=== PATIENT | male | born 1950 | race Caucasian/White ===

== ENCOUNTER → 2019-09-12 10:01 | Outpatient (BNVA) | payer MEDICARE, SELFPAY | PROVIDERS: Visit Provider Nurse Practitioner Family | DX: I10 Essential (primary) hypertension (principal); H91.90 Unspecified hearing loss, unspecified ear; E78.00 Pure hypercholesterolemia, unspecified; I71.4 Abdominal aortic aneurysm, without rupture | CPT/HCPCS: 80053; 80061; 84443; 85025 ==

== ENCOUNTER → 2020-02-12 11:16 | Outpatient (BNVA) | payer MEDICARE, SELFPAY | PROVIDERS: Referring Provider Dermatology; Visit Provider Dermatology | DX: D48.9 Neoplasm of uncertain behavior, unspecified (principal); L73.8 Other specified follicular disorders | CPT/HCPCS: 99203 ==

== ENCOUNTER → 2020-02-27 15:10 | Outpatient (BNVA) | payer MEDICARE, SELFPAY | PROVIDERS: Visit Provider Dermatology | DX: D48.5 Neoplasm of uncertain behavior of skin (principal); D48.9 Neoplasm of uncertain behavior, unspecified | CPT/HCPCS: 11443; 12051; 88304; 88305 ==

== ENCOUNTER → 2020-03-12 08:48 | Outpatient (BNVA) | payer MEDICARE, SELFPAY | PROVIDERS: Visit Provider Dermatology | DX: Z48.02 Encounter for removal of sutures (principal) | CPT/HCPCS: 99212 ==

== ENCOUNTER 2020-04-04 08:05 | Outpatient (CLI) | payer MEDICARE, SELFPAY ==
--- NOTE | 2020-04-04 08:13 | CT_ITS ---
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 CT angiogram is performed during IV injection. Reformation images reviewed. All CT scans at [facility] use at least one of these dose optimization te chniques: automated exposure control; mA and/or kV adjustment per patient size (includes targeted exa ms where dose is matched to clinical indication); or iterative reconstruction. CONTRAST: Visipaque 320; 95 mL IV. DLP: 2766.43 mGycm COMPARISON: 06/05/2019 6.9 mm noncalcified nodule at the RIGHT lung base, image 22 of series 2. Stable since 05/08/2019. Chr onic emphysema. Cardiac chambers are not significantly enlarged. Small hiatal hernia. Abdominal aorta: Patient is status post endovascular graft repair of the abdominal aorta with extensi on into the iliac arteries bilaterally. The [place] aneurysm measures 8.9 x 9.6 cm. Measuring slightly smaller in size as compared to the prior study. There is a bulge of the posterior RIGHT lateral wall of the aorta which is similar to the prior study. No endovascular leak or para-aortic hematoma. Lume n of the graft is patent with good enhancement. There is good enhancement of the common iliac stent. Calcification in the external iliac arteries with no occlusions. Celiac axis and SMA are both patent. Mild but stable atrophy of the LEFT kidney with decreased perfusion. Cortical perfusion is slightly improved since 06/05/2019 examination there is mild atrophy of the LEFT kidney. Kidney is decreased i n size from 9.60 9.2 cm. Stable 2.2 cm cyst RIGHT kidney. LEFT accessory renal artery is still enhanc ing. Main renal artery is also normally enhancing. Liver, gallbladder, spleen, pancreas and adrenal glands are unchanged. No acute interval change. Prox imal small bowel is draped very closely associated with the aortic aneurysm. No GI tract obstruction. The appendix is normal. Sigmoid and descending colon diverticulosis without acute diverticulitis. Pr ostate gland is enlarged encroaching into the posterior bladder. Bilateral inguinal canals are patent , LEFT greater than RIGHT containing fat. Fat-containing umbilical hernia. No osteoblastic or osteolytic bone disease. CT/CT angio abdomen pelvis [id number] IMPRESSION: 1. Stable aorta iliac endograft placement since 06/05/2019. Slight contraction of the [place] aneurysm. Lumen of the endovascular graft is intact with no endo vascular leak identified. 2. Mild progressive atrophy of the LEFT kidney. Otherwise the cortex is better enhanced than on the prior study of 06/05/2019. 3. Stable noncalcified 6.9 mm nodule at the RIGHT lung base since 05/08/2019. Recommend [address] follow-up.
[2020-04-04 08:40] LABS: Blood Urea Nitrogen 22 mg/dL (8-23)
[2020-04-04] MEDS: iodixanol 320 mg/mL 100mL Btl IV (08:52)
== END 2020-04-04 08:06 | disposition home or self-care (01) ==
LOC: RADWPI 08:09
PROVIDERS: Radiology Diagnostic Radiology; Family Provider Nurse Practitioner Family; PCP Nurse Practitioner Family; Visit Provider Surgery
DX: I71.4 Abdominal aortic aneurysm, without rupture (principal); R91.1 Solitary pulmonary nodule
CPT/HCPCS: 74174; 82565; 84520; Q9967

== ENCOUNTER → 2020-04-29 16:34 | Outpatient (BNVA) | payer MEDICARE, SELFPAY | PROVIDERS: Family Provider Nurse Practitioner Family; PCP Nurse Practitioner Family; Visit Provider Nurse Practitioner Family | DX: I10 Essential (primary) hypertension (principal); E55.9 Vitamin D deficiency, unspecified; G47.00 Insomnia, unspecified | CPT/HCPCS: 80053; 80061; 82306; 82607; 84443; 85025 ==

== ENCOUNTER → 2020-05-31 09:39 | Outpatient (BNVA) | payer MEDICARE, SELFPAY | PROVIDERS: Family Provider Nurse Practitioner Family; PCP Nurse Practitioner Family; Visit Provider Internal Medicine Nephrology | DX: N18.30 Chronic kidney disease, stage 3 unspecified (principal) | CPT/HCPCS: 80069; 82043; 82310; 83970; 85025 ==

== ENCOUNTER → 2020-10-21 16:13 | Outpatient (BNVA) | payer MEDICARE, SELFPAY | PROVIDERS: Family Provider Nurse Practitioner Family; PCP Nurse Practitioner Family; Visit Provider Nurse Practitioner Family | DX: E55.9 Vitamin D deficiency, unspecified (principal); I10 Essential (primary) hypertension; I71.4 Abdominal aortic aneurysm, without rupture; G47.00 Insomnia, unspecified | CPT/HCPCS: 80053; 80061; 82306; 82607; 84443; 85025 ==

== ENCOUNTER → 2020-11-27 08:39 | Outpatient (BNVA) | payer MEDICARE, SELFPAY | PROVIDERS: Family Provider Nurse Practitioner Family; PCP Nurse Practitioner Family; Visit Provider Internal Medicine Nephrology | DX: I10 Essential (primary) hypertension (principal); I70.1 Atherosclerosis of renal artery; N18.30 Chronic kidney disease, stage 3 unspecified | CPT/HCPCS: 80069; 82043; 82310; 83970; 85025 ==

== ENCOUNTER → 2021-01-23 09:40 | Outpatient (BNVA) | payer MEDICARE, SELFPAY | PROVIDERS: Family Provider Nurse Practitioner Family; PCP Nurse Practitioner Family; Visit Provider Internal Medicine Nephrology | DX: I70.1 Atherosclerosis of renal artery (principal); N18.30 Chronic kidney disease, stage 3 unspecified; E55.9 Vitamin D deficiency, unspecified; I10 Essential (primary) hypertension; E78.00 Pure hypercholesterolemia, unspecified | CPT/HCPCS: 80048; 80069; 82043; 82306; 82310; 83970; 85007; 85027 ==

== ENCOUNTER → 2021-04-23 13:33 | Outpatient (BNVA) | payer MEDICARE, SELFPAY | PROVIDERS: Family Provider Nurse Practitioner Family; PCP Nurse Practitioner Family; Visit Provider Nurse Practitioner Family | DX: R30.0 Dysuria (principal); I10 Essential (primary) hypertension; E55.9 Vitamin D deficiency, unspecified; E78.00 Pure hypercholesterolemia, unspecified; G47.00 Insomnia, unspecified; N30.90 Cystitis, unspecified without hematuria | CPT/HCPCS: 80053; 80061; 81003; 82306; 85025 ==

== ENCOUNTER → 2021-08-22 10:07 | Outpatient (BNVA) | payer MEDICARE, SELFPAY | PROVIDERS: Family Provider Nurse Practitioner Family; PCP Nurse Practitioner Family; Visit Provider Nurse Practitioner Family | DX: G47.00 Insomnia, unspecified (principal); I10 Essential (primary) hypertension; R53.83 Other fatigue; Z12.5 Encounter for screening for malignant neoplasm of prostate; E78.00 Pure hypercholesterolemia, unspecified; R63.5 Abnormal weight gain | CPT/HCPCS: 80053; 80061; 84403; 84443; 85025; G0103 ==

== ENCOUNTER → 2021-11-17 08:55 | Outpatient (BNVA) | payer MEDICARE, SELFPAY | PROVIDERS: Family Provider Nurse Practitioner Family; PCP Nurse Practitioner Family; Visit Provider Registered Nurse | DX: I10 Essential (primary) hypertension (principal) | CPT/HCPCS: 80048 ==

== ENCOUNTER → 2022-01-13 13:32 | Outpatient (BNVA) | payer MEDICARE, SELFPAY | PROVIDERS: Family Provider Nurse Practitioner Family; PCP Nurse Practitioner Family; Visit Provider Internal Medicine Cardiovascular Disease | DX: I71.4 Abdominal aortic aneurysm, without rupture (principal); E78.00 Pure hypercholesterolemia, unspecified; Z86.73 Personal history of transient ischemic attack (TIA), and cerebral infarction without residual deficits; I70.1 Atherosclerosis of renal artery; I10 Essential (primary) hypertension; Z87.891 Personal history of nicotine dependence | CPT/HCPCS: 99213 ==

== ENCOUNTER → 2022-03-20 09:49 | Outpatient (BNVA) | payer MEDICARE, SELFPAY | PROVIDERS: Family Provider Nurse Practitioner Family; PCP Nurse Practitioner Family; Visit Provider Nurse Practitioner Family | DX: R73.9 Hyperglycemia, unspecified (principal); E55.9 Vitamin D deficiency, unspecified; I10 Essential (primary) hypertension | CPT/HCPCS: 80053; 80061; 82306; 83036; 84443; 85025 ==

== ENCOUNTER → 2022-08-20 10:25 | Outpatient (BNVA) | payer MEDICARE, SELFPAY | PROVIDERS: Family Provider Nurse Practitioner Family; PCP Nurse Practitioner Family; Visit Provider Nurse Practitioner Family | DX: I10 Essential (primary) hypertension (principal); N18.9 Chronic kidney disease, unspecified; R73.9 Hyperglycemia, unspecified | CPT/HCPCS: 80053; 80061; 82607; 83036; 83735; 85025 ==

== ENCOUNTER → 2022-09-03 13:40 | Outpatient (BNVA) | payer MEDICARE, SELFPAY | PROVIDERS: Family Provider Nurse Practitioner Family; PCP Nurse Practitioner Family; Visit Provider Internal Medicine | DX: I71.40 Abdominal aortic aneurysm, without rupture, unspecified (principal); I12.9 Hypertensive chronic kidney disease with stage 1 through stage 4 chronic kidney disease, or unspecified chronic kidney disease; N18.9 Chronic kidney disease, unspecified; Z87.891 Personal history of nicotine dependence; Z79.82 Long term (current) use of aspirin | CPT/HCPCS: 99214 ==

== ENCOUNTER → 2023-02-16 10:17 | Outpatient (BNVA) | payer MEDICARE, SELFPAY | PROVIDERS: Family Provider Nurse Practitioner Family; PCP Nurse Practitioner Family; Visit Provider Internal Medicine Nephrology | DX: E78.00 Pure hypercholesterolemia, unspecified; Z12.5 Encounter for screening for malignant neoplasm of prostate; I11.0 Hypertensive heart disease with heart failure; N18.31 Chronic kidney disease, stage 3a | CPT/HCPCS: 80053; 80061; 80069; 82043; 82306; 82310; 83970; 85025; G0103 ==

== ENCOUNTER → 2023-06-14 10:23 | Outpatient (BNVA) | payer MEDICARE, SELFPAY | PROVIDERS: Family Provider Nurse Practitioner Family; PCP Nurse Practitioner Family; Visit Provider Nurse Practitioner Family | DX: I12.9 Hypertensive chronic kidney disease with stage 1 through stage 4 chronic kidney disease, or unspecified chronic kidney disease (principal); N18.9 Chronic kidney disease, unspecified; Z87.891 Personal history of nicotine dependence; Z95.828 Presence of other vascular implants and grafts | CPT/HCPCS: 99214 ==

== ENCOUNTER → 2023-08-26 10:15 | Outpatient (BNVA) | payer MEDICARE, SELFPAY | PROVIDERS: Family Provider Nurse Practitioner Family; PCP Nurse Practitioner Family; Visit Provider Nurse Practitioner Family | DX: G47.00 Insomnia, unspecified (principal); E55.9 Vitamin D deficiency, unspecified; R73.9 Hyperglycemia, unspecified; I10 Essential (primary) hypertension; M25.50 Pain in unspecified joint; Z79.899 Other long term (current) drug therapy | CPT/HCPCS: 80053; 80061; 82306; 82607; 83036; 84443; 85025; 85651; 86038; 86140; 86200; 86431 ==

== ENCOUNTER → 2023-09-06 10:55 | Outpatient (BNVA) | payer MEDICARE, SELFPAY | PROVIDERS: Family Provider Nurse Practitioner Family; PCP Nurse Practitioner Family; Visit Provider Nurse Practitioner Family | DX: D75.1 Secondary polycythemia (principal) | CPT/HCPCS: 85025 ==

== ENCOUNTER → 2024-02-14 11:38 | Outpatient (BNVA) | payer MEDICARE, SELFPAY | PROVIDERS: Family Provider Nurse Practitioner Family; PCP Nurse Practitioner Family; Visit Provider Nurse Practitioner Family | DX: N18.31 Chronic kidney disease, stage 3a (principal); E55.9 Vitamin D deficiency, unspecified | CPT/HCPCS: 80069; 81000; 82043; 82306; 82310; 83970; 85007; 85027 ==

== ENCOUNTER → 2024-08-14 14:06 | Outpatient (BNVA) | payer MEDICARE, SELFPAY | PROVIDERS: Family Provider Nurse Practitioner Family; PCP Nurse Practitioner Family; Visit Provider Nurse Practitioner Family | DX: E55.9 Vitamin D deficiency, unspecified (principal); I10 Essential (primary) hypertension; R73.9 Hyperglycemia, unspecified; N18.9 Chronic kidney disease, unspecified; Z12.5 Encounter for screening for malignant neoplasm of prostate; R53.83 Other fatigue | CPT/HCPCS: 80053; 80061; 82306; 82607; 83036; 84443; 85025; G0103 ==

== ENCOUNTER → 2024-12-26 09:17 | Outpatient (BNVA) | payer MEDICARE, SELFPAY | PROVIDERS: Family Provider Nurse Practitioner Family; PCP Nurse Practitioner Family; Visit Provider Nurse Practitioner Family | DX: N18.9 Chronic kidney disease, unspecified (principal) | CPT/HCPCS: 80069; 82043; 82310; 83970; 85025 ==

== ENCOUNTER → 2025-02-26 11:13 | Outpatient (BNVA) | payer MEDICARE, SELFPAY | PROVIDERS: Family Provider Nurse Practitioner Family; PCP Nurse Practitioner Family; Visit Provider Nurse Practitioner Family | DX: I10 Essential (primary) hypertension (principal); E78.00 Pure hypercholesterolemia, unspecified; R53.83 Other fatigue; N18.9 Chronic kidney disease, unspecified; R73.9 Hyperglycemia, unspecified | CPT/HCPCS: 80053; 80061; 83036; 84443; 85025 ==

== ENCOUNTER → 2025-03-29 11:00 | Outpatient (BNVA) | payer MEDICARE, SELFPAY | PROVIDERS: Family Provider Nurse Practitioner Family; PCP Nurse Practitioner Family; Visit Provider Nurse Practitioner Family | DX: D75.1 Secondary polycythemia (principal) | CPT/HCPCS: 85025 ==